=== PATIENT | female | born 1975 | race Caucasian/White ===

== ENCOUNTER 2018-08-27 13:18 | Outpatient (CLI) | payer BC | END 2018-08-27 19:52 | disposition home or self-care (01) | LOC: SMA 13:18 | PROVIDERS: ATTEND Family Medicine | DX: Z12.31 Encounter for screening mammogram for malignant neoplasm of breast (principal) | CPT/HCPCS: 77067 ==

== ENCOUNTER 2019-02-19 09:32 | Outpatient (CLI) | payer BC | END 2019-02-19 21:04 | disposition home or self-care (01) | LOC: SMA 09:32 | PROVIDERS: ATTEND Family Medicine | DX: N64.53 Retraction of nipple (principal); R92.1 Mammographic calcification found on diagnostic imaging of breast | CPT/HCPCS: 77066 ==

== ENCOUNTER 2019-08-29 08:24 | Outpatient (CLI) | payer BC | END 2019-08-29 13:09 | disposition home or self-care (01) | LOC: SMA 08:24 | PROVIDERS: ATTEND Family Medicine | DX: R92.8 Other abnormal and inconclusive findings on diagnostic imaging of breast (principal) | CPT/HCPCS: 77066 ==